=== PATIENT | female | born 1985 | race Caucasian/White ===

== ENCOUNTER 2016-04-23 09:27 | Emergency (ER) | payer OTHER ==
[~2016-04-23] VITALS: Ht 165.1 cm; Wt 59.1 kg
[~2016-04-23 09:27] MED LIST: AMOXICILLIN500 M1 PO; BACLOFEN10 MG PO; BENTYL10 MG PO; FIORICET,ESG1 TABLET PO; FLEXERIL10 MG PO; FLONASE16 G1 BOTH NARES; JUNEL1 EAC1 PO; KEFLEX500 MG PO; LAMICTAL100 MG PO; LAMICTAL25 MG PO; LITHIUM CARBON300 MG PO; LORATADINE10 M2 PO; LORTAB 10-3251 EACH PO; LYRICA75 MG PO; MOTRIN800 MG PO; NAPROSYN500 MG PO; NAPROXEN500 MG PO; NEXPLANON68 MG SC; NORCO 5/3251 TABLET PO; PAXIL20 MG PO; PEN-VEE K,VEET500 MG PO; PERCOCET 5/31 TABLET PO; PERIDEX1 ML MM; PREDNISONE10 MG PO; PROMETHAZINE HC25 M1 PO; PROZAC20 MG PO; TESSALON200 MG PO; TYLENOL WITH C1 EACH PO; ULTRAM50 MG PO; VYVANSE30 MG PO; ZOFRAN ODT4 MG PO
[2016-04-23] MEDS ORDERED: ULTRAM50 MG PO (11:14)
[2016-04-23] MEDS ORDERED: ZOFRAN ODT4 MG PO (11:14)
[2016-04-23 11:47] VITALS: BP 123/87
== END 2016-04-23 11:48 | disposition home or self-care (01) ==
LOC: EME 09:27
PROC: 3E0T3BZ Introduction of Anesthetic Agent into Peripheral Nerves and Plexi, Percutaneous Approach (ICD-10-PCS; principal; 2016-04-23)
DX: K04.7 Periapical abscess without sinus (principal); K02.9 Dental caries, unspecified; F17.200 Nicotine dependence, unspecified, uncomplicated
CPT/HCPCS: 99281; 99283

== ENCOUNTER 2016-04-30 20:23 | Emergency (ER) | payer OTHER ==
[~2016-04-30] VITALS: Ht 165.1 cm; Wt 57.3 kg
[2016-04-30] MEDS ORDERED: NORCO 5/3251 TABLET PO (22:03)
[2016-04-30 22:16] VITALS: BP 115/81
== END 2016-04-30 22:18 | disposition home or self-care (01) ==
LOC: EME 20:23
DX: K08.89 Other specified disorders of teeth and supporting structures (principal); F31.9 Bipolar disorder, unspecified; F17.200 Nicotine dependence, unspecified, uncomplicated
CPT/HCPCS: 99281; 99283

== ENCOUNTER 2016-05-21 23:47 | Emergency (ER) | payer OTHER ==
[~2016-05-21] VITALS: Ht 165.1 cm; Wt 57.5 kg
[2016-05-22 00:17] LABS: HEMATOCRIT 38.2 % (36.0-46.0); MCH 30.4 PG (29.0-34.0); MCHC 33.8 G/DL (30.0-36.0); MCV 90.1 FL (83-99); MEAN PLAT.VOLUME 10.7 uM^3 (9.5-12.4); PLATELET COUNT 203 K/uL (156-360); RBC DIS.WIDTH-CV 12.9 % (11.8-14.6); RBC DIS.WIDTH-SD 41.7 % (39-53); RED BLOOD COUNT 4.24 M/uL (3.80-5.20); WHITE BLOOD COUNT 23.2 K/uL (4.1-10.2)
[2016-05-22 00:26] LABS: CHLORIDE 109 mEq/L (99-109); POTASSIUM 3.8 mEq/L (3.7-5.4); SODIUM 140 mEq/L (136-147)
[2016-05-22 00:27] LABS: GLUCOSE 87 mg/dL (70-99)
[2016-05-22 00:29] LABS: ANION GAP 7 MEQ/L (2-14)
[2016-05-22 00:31] LABS: GFR ESTIMATE (CALCULATED) > 59 mL/min/
[2016-05-22 00:32] LABS: UREA NITROGEN (BUN) 16 mg/dL (9-23)
[2016-05-22 00:33] LABS: BILIRUBIN NEGATIVE; BLOOD NEGATIVE; COLOR YELLOW ((YELLOW)); GLUCOSE (STRIP) NEGATIVE; KETONES NEGATIVE; LEUKOCYTES NEGATIVE; NITRITE NEGATIVE; PROTEIN (STRIP) NEGATIVE; SPECIFIC GRAVITY 1.025 (1.000-1.030); UROBILINOGEN 0.2 MG/DL (0.2-1.0)
[2016-05-22 00:34] LABS: ADD MIUA? NO; UCUL ADDED? NO
[2016-05-22 00:40] LABS: QUANTITATIVE HCG 3011.8 MIU/ML
[2016-05-22 01:19] LABS: EOSINOPHIL COUNT 0.2 K/uL (0-0.3); IMMATURE GRANULOCYTE (%) 0.3 % (0.0-0.7); IMMATURE GRANULOCYTE COUNT 0.7 K/uL; LYMPHOCYTE COUNT 4.5 K/uL (1.0-2.8); MONOCYTE (%) 3.1 % (3-12); MONOCYTE COUNT 0.7 K/uL (0-0.8); NEUTROPHIL COUNT 17.6 K/uL (1.8-6.4)
[2016-05-22] MEDS ORDERED: ZOFRAN4 MG PO (01:57)
[2016-05-22 02:12] VITALS: BP 118/81
== END 2016-05-22 02:13 | disposition home or self-care (01) ==
LOC: EME 23:47
PROVIDERS: Physician Assistant
DX: M54.16 Radiculopathy, lumbar region (principal); M54.31 Sciatica, right side; Z33.1 Pregnant state, incidental
CPT/HCPCS: 80048; 81003; 84702; 85025; 85027; 99281; 99283

== ENCOUNTER 2016-05-26 03:44 | Emergency (ER) | payer OTHER ==
[~2016-05-26] VITALS: Ht 165.1 cm; Wt 57.3 kg
[~2016-05-26 03:44] MED LIST changes: +ZOFRAN4 MG PO
[2016-05-26 05:51] LABS: EOSINOPHIL (%) 2.8 % (0-5); EOSINOPHIL COUNT 0.2 K/uL (0-0.3); HEMATOCRIT 37.8 % (36.0-46.0); IMMATURE GRANULOCYTE (%) 0.3 % (0.0-0.7); IMMATURE GRANULOCYTE COUNT 0.2 K/uL; LYMPHOCYTE COUNT 3.1 K/uL (1.0-2.8); MCH 30.4 PG (29.0-34.0); MCHC 33.6 G/DL (30.0-36.0); MCV 90.4 FL (83-99); MEAN PLAT.VOLUME 10.6 uM^3 (9.5-12.4); MONOCYTE (%) 6.9 % (3-12); MONOCYTE COUNT 0.6 K/uL (0-0.8); NEUTROPHIL (%) 50.3 % (45-76); PLATELET COUNT 189 K/uL (156-360); RBC DIS.WIDTH-CV 12.7 % (11.8-14.6); RBC DIS.WIDTH-SD 41.2 % (39-53); RED BLOOD COUNT 4.18 M/uL (3.80-5.20); WHITE BLOOD COUNT 7.9 K/uL (4.1-10.2)
[2016-05-26 05:53] LABS: ADD MIUA? YES; BILIRUBIN NEGATIVE; BLOOD NEGATIVE; COLOR YELLOW ((YELLOW)); GLUCOSE (STRIP) NEGATIVE; KETONES NEGATIVE; LEUKOCYTES TRACE; NITRITE NEGATIVE; PROTEIN (STRIP) NEGATIVE; SPECIFIC GRAVITY 1.013 (1.000-1.030); UROBILINOGEN 0.2 MG/DL (0.2-1.0)
[2016-05-26 06:00] LABS: CHLORIDE 108 mEq/L (99-109); POTASSIUM 4.1 mEq/L (3.7-5.4); SODIUM 139 mEq/L (136-147)
[2016-05-26 06:02] LABS: GLUCOSE 93 mg/dL (70-99)
[2016-05-26 06:03] LABS: ANION GAP 7 MEQ/L (2-14)
[2016-05-26 06:04] LABS: TOTAL BILIRUBIN 0.1 mg/dL (0.0-1.0)
[2016-05-26 06:05] LABS: ALKALINE PHOSPHATASE 49 IU/L (3-129)
[2016-05-26 06:06] LABS: GFR ESTIMATE (CALCULATED) > 59 mL/min/
[2016-05-26 06:07] LABS: UREA NITROGEN (BUN) 17 mg/dL (9-23)
[2016-05-26 06:09] LABS: LIPASE 17 U/L (1.0-51.0)
[2016-05-26 06:13] LABS: BACTERIA RARE /HPF; EPITHELIAL CELLS 1+ /HPF; MUCUS TRACE /LPF; RED BLOOD CELLS 0-5 /HPF (0-5); UCUL ADDED? NO; WHITE BLOOD CELLS 0-5 /HPF (0-5)
[2016-05-26 06:40] LABS: QUANTITATIVE HCG 11464.5 MIU/ML
[2016-05-26 07:20] VITALS: BP 112/72
== END 2016-05-26 07:25 | disposition home or self-care (01) ==
LOC: EME 03:44
PROVIDERS: Emergency Medicine
DX: R10.9 Unspecified abdominal pain (principal); O99.341 Other mental disorders complicating pregnancy, first trimester; F31.9 Bipolar disorder, unspecified; Z3A.01 Less than 8 weeks gestation of pregnancy
CPT/HCPCS: 76801; 80053; 81003; 83690; 84702; 85025; 99281; 99284

== ENCOUNTER 2016-06-07 14:45 | Emergency (ER) | payer OTHER ==
[~2016-06-07] VITALS: Ht 165.1 cm; Wt 56.6 kg
[2016-06-07 15:00] VITALS: BP 102/69
[2016-06-07 15:23] LABS: ADD MIUA? YES; BILIRUBIN NEGATIVE; BLOOD NEGATIVE; COLOR YELLOW ((YELLOW)); GLUCOSE (STRIP) NEGATIVE; KETONES 5; LEUKOCYTES SMALL; NITRITE NEGATIVE; PROTEIN (STRIP) 30; SPECIFIC GRAVITY 1.023 (1.000-1.030); UROBILINOGEN 0.2 MG/DL (0.2-1.0)
[2016-06-07 15:39] LABS: HEMATOCRIT 39.4 % (36.0-46.0); MCH 29.6 PG (29.0-34.0); MCV 89.7 FL (83-99); MEAN PLAT.VOLUME 10.8 uM^3 (9.5-12.4); PLATELET COUNT 228 K/uL (156-360); RBC DIS.WIDTH-CV 12.3 % (11.8-14.6); RBC DIS.WIDTH-SD 40.7 % (39-53); RED BLOOD COUNT 4.39 M/uL (3.80-5.20); WHITE BLOOD COUNT 9.8 K/uL (4.1-10.2)
[2016-06-07 15:51] LABS: CHLORIDE 106 mEq/L (99-109); POTASSIUM 4.4 mEq/L (3.7-5.4); SODIUM 137 mEq/L (136-147)
[2016-06-07 15:53] LABS: GLUCOSE 80 mg/dL (70-99)
[2016-06-07 15:54] LABS: ANION GAP 8 MEQ/L (2-14)
[2016-06-07 15:55] LABS: TOTAL BILIRUBIN 0.7 mg/dL (0.0-1.0)
[2016-06-07 15:56] LABS: ALKALINE PHOSPHATASE 53 IU/L (3-129)
[2016-06-07 15:57] LABS: GFR ESTIMATE (CALCULATED) > 59 mL/min/
[2016-06-07 15:58] LABS: UREA NITROGEN (BUN) 10 mg/dL (9-23)
[2016-06-07 16:00] LABS: LIPASE 10 U/L (1.0-51.0)
[2016-06-07 16:05] LABS: BACTERIA 3+ /HPF; EPITHELIAL CELLS 2+ /HPF; MUCUS 3+ /LPF; RED BLOOD CELLS TNTC /HPF (0-5); UCUL ADDED? YES; WHITE BLOOD CELLS 20-30 /HPF (0-5)
[2016-06-07 16:26] LABS: QUANTITATIVE HCG 114190.3 MIU/ML
== END 2016-06-07 17:14 | disposition left against medical advice (07) ==
LOC: EME 14:45
DX: O23.41 Unspecified infection of urinary tract in pregnancy, first trimester (principal); N39.0 Urinary tract infection, site not specified; O26.891 Other specified pregnancy related conditions, first trimester; R10.31 Right lower quadrant pain; R51 Headache; O99.331 Smoking (tobacco) complicating pregnancy, first trimester; F17.200 Nicotine dependence, unspecified, uncomplicated
CPT/HCPCS: 80053; 81003; 83690; 84702; 85027; 87086; 99281; 99284; J2765; J7030

== ENCOUNTER 2016-10-06 14:28 | Emergency (ER) | payer OTHER ==
[~2016-10-06] VITALS: Ht 165.1 cm; Wt 64.0 kg
[2016-10-06 15:29] LABS: HEMATOCRIT 31.9 % (36.0-46.0); MCH 30.4 PG (29.0-34.0); MCHC 34.2 G/DL (30.0-36.0); MCV 89.1 FL (83-99); MEAN PLAT.VOLUME 11.7 uM^3 (9.5-12.4); PLATELET COUNT 155 K/uL (156-360); RBC DIS.WIDTH-CV 12.7 % (11.8-14.6); RBC DIS.WIDTH-SD 41.6 % (39-53); RED BLOOD COUNT 3.58 M/uL (3.80-5.20); WHITE BLOOD COUNT 10.5 K/uL (4.1-10.2)
[2016-10-06 15:39] LABS: CHLORIDE 109 mEq/L (99-109); POTASSIUM 3.7 mEq/L (3.7-5.4); SODIUM 139 mEq/L (136-147)
[2016-10-06 15:41] LABS: GLUCOSE 94 mg/dL (70-99)
[2016-10-06 15:42] LABS: ANION GAP 10 MEQ/L (2-14)
[2016-10-06 15:45] LABS: GFR ESTIMATE (CALCULATED) > 59 mL/min/
[2016-10-06 15:46] LABS: UREA NITROGEN (BUN) 13 mg/dL (9-23)
[2016-10-06 18:07] VITALS: BP 96/62
== END 2016-10-06 18:09 | disposition left against medical advice (07) ==
LOC: EME 14:28
PROVIDERS: Emergency Medicine
DX: O26.892 Other specified pregnancy related conditions, second trimester (principal); R10.9 Unspecified abdominal pain; M54.5 Low back pain; M54.2 Cervicalgia; R51 Headache; V49.40XA Driver injured in collision with unspecified motor vehicles in traffic accident, initial encounter; Y92.410 Unspecified street and highway as the place of occurrence of the external cause; O99.332 Smoking (tobacco) complicating pregnancy, second trimester; F17.200 Nicotine dependence, unspecified, uncomplicated; Z3A.25 25 weeks gestation of pregnancy
CPT/HCPCS: 72125; 76805; 80048; 85027; 99281; 99284

== ENCOUNTER 2017-01-04 23:24 | Outpatient (CLI) | payer OTHER ==
[~2017-01-04] VITALS: Ht 165.1 cm; Wt 69.0 kg
[2017-01-04 23:26] VITALS: BP 132/89
[2017-01-05 01:47] VITALS: BP 128/77
[2017-01-05 03:29] VITALS: BP 114/77
== END 2017-01-05 04:20 ==
LOC: LDRP-OP → 2WEST 23:25 → LDRP-OP 02-21 16:34
DX: O47.1 False labor at or after 37 completed weeks of gestation (principal); Z3A.37 37 weeks gestation of pregnancy; F11.10 Opioid abuse, uncomplicated; O99.333 Smoking (tobacco) complicating pregnancy, third trimester; F17.200 Nicotine dependence, unspecified, uncomplicated; O99.343 Other mental disorders complicating pregnancy, third trimester; F31.9 Bipolar disorder, unspecified
CPT/HCPCS: 59025; G0378

== ENCOUNTER 2017-01-13 23:03 | Inpatient (IN) | payer OTHER ==
[~2017-01-13] VITALS: Ht 165.1 cm; Wt 65.7 kg
[2017-01-13 23:20] VITALS: BP 126/95
[2017-01-13 23:52] LABS: EOSINOPHIL (%) 0.7 % (0-5); EOSINOPHIL COUNT 0.1 K/uL (0-0.3); HEMATOCRIT 33.6 % (36.0-46.0); IMMATURE GRANULOCYTE (%) 1.8 % (0.0-0.7); IMMATURE GRANULOCYTE COUNT 0.3 K/uL; INSTRUMENT ABS NEUTROPHIL CT 14.5 K/uL; LYMPHOCYTE COUNT 2.4 K/uL (1.0-2.8); MCH 28.8 PG (29.0-34.0); MEAN PLAT.VOLUME 12.2 uM^3 (9.5-12.4); MONOCYTE (%) 4.5 % (3-12); MONOCYTE COUNT 0.8 K/uL (0-0.8); NEUTROPHIL (%) 79.8 % (45-76); NEUTROPHIL COUNT 14.5 K/uL (1.8-6.4); PLATELET COUNT 147 K/uL (156-360); RBC DIS.WIDTH-CV 13.2 % (11.8-14.6); RBC DIS.WIDTH-SD 41.9 % (39-53); RED BLOOD COUNT 3.86 M/uL (3.80-5.20); WHITE BLOOD COUNT 18.1 K/uL (4.1-10.2)
[2017-01-14] VITALS (19 sets, daily range): BP systolic 106–140; BP diastolic 69–111
[2017-01-14 01:34] LABS: AMPHETAMINE NEGATIVE (500 ng/mL); BARBITURATES NEGATIVE (200 ng/mL); BENZODIAZEPINES NEGATIVE (150 ng/mL); COCAINE NEGATIVE (150 ng/mL); INTERNAL CONTROLS VALID? YES; METHADONE NEGATIVE (200 ng/mL); METHAMPHETAMINE NEGATIVE (500 ng/mL); OPIATES (MORPHINE) NEGATIVE (100 ng/mL); OXYCODONE NEGATIVE (100 ng/mL); PHENCYCLIDINE NEGATIVE (25 ng/mL); PROPOXYPHENE NEGATIVE (300 ng/mL); THC CANNABINOIDS NEGATIVE (50 ng/mL); TRICYCLIC ANTIDEPRESSANTS NEGATIVE (300 ng/mL)
[2017-01-14] MEDS ORDERED: FOLIC ACID1 MG PO (19:08)
[2017-01-14] MEDS ORDERED: PRENATAL TABLE1 EAC3 PO (19:08)
[2017-01-15 06:51] LABS: EOSINOPHIL (%) 0.8 % (0-5); EOSINOPHIL COUNT 0.1 K/uL (0-0.3); HEMATOCRIT 27.3 % (36.0-46.0); IMMATURE GRANULOCYTE COUNT 0.2 K/uL; LYMPHOCYTE COUNT 1.3 K/uL (1.0-2.8); MCH 28.7 PG (29.0-34.0); MCHC 32.2 G/DL (30.0-36.0); MCV 88.9 FL (83-99); MEAN PLAT.VOLUME 12.1 uM^3 (9.5-12.4); MONOCYTE (%) 5.5 % (3-12); MONOCYTE COUNT 0.8 K/uL (0-0.8); NEUTROPHIL (%) 83.3 % (45-76); PLATELET COUNT 112 K/uL (156-360); RBC DIS.WIDTH-CV 13.3 % (11.8-14.6); RBC DIS.WIDTH-SD 43.2 % (39-53); WHITE BLOOD COUNT 14.4 K/uL (4.1-10.2)
[2017-01-15 07:04] LABS: RED BLOOD COUNT 3.07 M/uL (3.80-5.20)
[2017-01-15 07:33] VITALS: BP 129/77
[2017-01-15 22:14] VITALS: BP 116/80
[2017-01-16 07:00] VITALS: BP 118/82
[2017-01-16] MEDS ORDERED: IRON325 M1 PO (08:46)
[2017-01-16] MEDS ORDERED: MOTRIN800 MG PO (08:46)
[2017-01-16] MEDS ORDERED: LITHIUM CARBON300 MG PO (11:03)
[2017-01-16] MEDS ORDERED: PAXIL20 MG PO (11:03)
== END 2017-01-16 12:13 | DRG 775 ==
LOC: LDRP-OP 23:03 → 2WEST 23:04 → LDRP-OP 02-21 04:57
PROVIDERS: Advanced Practice Midwife
PROC: 10E0XZZ Delivery of Products of Conception, External Approach (ICD-10-PCS; principal; 2017-01-14)
PROC: 00HU33Z Insertion of Infusion Device into Spinal Canal, Percutaneous Approach (ICD-10-PCS; principal; 2017-01-14)
PROC: 3E0R3BZ Introduction of Anesthetic Agent into Spinal Canal, Percutaneous Approach (ICD-10-PCS; principal; 2017-01-14)
DX: O99.344 Other mental disorders complicating childbirth (principal); O99.324 Drug use complicating childbirth; O42.92 Full-term premature rupture of membranes, unspecified as to length of time between rupture and onset of labor; O99.02 Anemia complicating childbirth; F11.10 Opioid abuse, uncomplicated; Z37.0 Single live birth; Z3A.38 38 weeks gestation of pregnancy; F31.9 Bipolar disorder, unspecified; D62 Acute posthemorrhagic anemia; O99.334 Smoking (tobacco) complicating childbirth; F17.200 Nicotine dependence, unspecified, uncomplicated; F12.10 Cannabis abuse, uncomplicated; F13.10 Sedative, hypnotic or anxiolytic abuse, uncomplicated
CPT/HCPCS: 85025; 90686; C1755; G0378; J3010; J7120